=== PATIENT | female | born 1940 | race Caucasian/White ===

== ENCOUNTER 2021-11-17 13:25 | Emergency (ER) | payer MEDICARE ==
[2021-11-17] MEDS ORDERED: SODIUM CHLORIDE 0.9% 500 ML 500 ML IV STA (15:21)
[2021-11-17 15:55] LABS: Basophils % (A) 1 %; Eosinophils # (A) 0.2 k/uL (0-0.7); Eosinophils % (A) 3 %; HCT 40.9 % (34.0-46.0); HGB 13.7 gm/dL (11.4-16.0); Lymphocytes # (A) 1.3 k/uL (1.0-4.8); Lymphocytes % (A) 26 %; MCH 32.7 pg (25.0-35.0); MCHC 33.4 g/dL (31.0-37.0); MCV 97.9 fL (80.0-100.0); Mean Platelet Volume 11.1; Monocytes # (A) 0.2 k/uL (0-1.0); Monocytes % (A) 4 %; Neutrophils # (A) 3.2 k/uL (1.3-7.7); Neutrophils % (A) 63 %; Platelet Count 177 k/uL (150-450); RBC 4.18 m/uL (3.80-5.40); RDW 15.3 % (11.5-15.5); WBC 5.1 k/uL (3.8-10.6)
[2021-11-17 15:58] LABS: Appearance,Urine Clear (Clear); Bilirubin,Urine 2+ (Negative); Blood,Urine Negative (Negative); Color,Urine Dark Yellow; Glucose,Urine (UA) Negative (Negative); Ketones,Urine Negative (Negative); Leukocyte Esterase,Urine Negative (Negative); Nitrite,Urine Negative (Negative); Protein,Urine Negative (Negative); Specific Gravity,Urine 1.009 (1.001-1.035); Urobilinogen,Urine <2.0 mg/dL (<2.0)
[2021-11-17 16:08] LABS: Albumin 3.6 g/dL (3.5-5.0); Bilirubin, Conjugated 11.2 mg/dL (0.0-0.3); Bilirubin, Delta 5.7 mg/dL (0.0-0.2); Bilirubin,Unconjugated 1.4 mg/dL (0.0-1.1); Calcium 9.1 mg/dL (8.4-10.2); Potassium 3.2 mmol/L (3.5-5.1); Total Protein 6.9 g/dL (6.3-8.2)
--- NOTE | 2021-11-17 16:10 | XR ---
EXAMINATION TYPE: XR chest 1V portable DATE OF EXAM: 11/17/2021 COMPARISON: NONE HISTORY: Abdominal pain chest pain TECHNIQUE: Single view FINDINGS: There is no heart failure nor confluent pneumonic infiltrate. There are sternal wires. Ther e is left axillary pacemaker. Costophrenic angles are clear. There is some arthritic changes in the r ight shoulder joint with severe subacromial joint space narrowing. IMPRESSION: No active cardiopulmonary disease.
[2021-11-17 16:14] LABS: Total Bilirubin 18.3 mg/dL (0.2-1.3)
--- NOTE | 2021-11-17 16:15 | XR ---
EXAMINATION TYPE: XR KUB DATE OF EXAM: 11/17/2021 COMPARISON: NONE HISTORY: Abdominal pain TECHNIQUE: 2 views FINDINGS: Two-view supine were obtained and showed no sign of intestinal obstruction or pneumoperiton eum. Fecal pattern is normal. There is vascular calcification. No evidence of a mass. Lung bases are clear. There is mild lumbar levoscoliosis. There is bowel projected over the proximal right femur and consistent with abdominal hernia. IMPRESSION: Nonacute abdomen. Atherosclerotic vascular disease.
[2021-11-17 16:32] LABS: INR 1.1 (<1.2); Partial Thromboplastin Time 28.7 sec (22.0-30.0); Prothrombin Time 11.6 sec (9.0-12.0)
[2021-11-17] MEDS ORDERED: POTASSIUM CHLORIDE ER 20 MEQ TAB.ER PO STA (17:10)
[2021-11-17] MEDS ORDERED: PIPERACILLIN-TAZOBACTAM 3.375 GM in SODIUM CHLORIDE 0.9% 100 ML IVPB SCH (17:15)
--- NOTE | 2021-11-17 17:16 | ED ---
General Adult HPI - General Chief complaint: Recheck/Abnormal Lab/Rx Stated complaint: jaundice, abn labs Time Seen by Provider: 11/17/21 15:10 Source: patient, RN notes reviewed, old records reviewed Mode of arrival: ambulatory Limitations: no limitations - History of Present Illness Initial comments: Patient is an 80-year-old female with past medical history remarkable for heart failure, diabetes, hypertension, thyroid disorder, cholecystectomy multiple years ago and presents emergency Department complaining of worsening weakness as well as worsening skin turning yellow. Patient was seen palpation over the last few weeks by her physician,concern for possible blockage of her hepatobiliary tree. CT obtained on 11/12/[address] [facility] revealed severe diffuse dilation of intrahepatic and extrahepatic biliary ducts as well as the main d istal pancreatic duct. There is small area of nonspecific increased attenuation near the ampulla. MRI or MRCP. Recommended to evaluate for underlying pancreatic head mass for possible choledocholithiasis. Patient states symptoms have been ongoing for multiple weeks. She denies any abdominal pain. Denies any nausea or vomiting. Doesn't endorse lightening of her stools as well as more diarrhea. Denies any fevers, chills. Denies any chest pain or shortness of breath. His no other acute complaints at this time. Is due to follow-up with Dr. House of GI later this week but her weakness has gotten worse which has prompted her to come to the emergency department for further evaluation. Katalina armendarzi does not come with the disc of the images from an outside hospital, but does come with paperwork as well as CT abdomen and pelvis obtained there. - Related Data Allergies Allergy/AdvReac Type Severity Reaction Status Date / Time adhesive tape Allergy Rash/Hives Verified 11/17/21 14:35 cortisone Allergy Nausea & Verified 11/17/21 14:35 Vomiting & Diarrhea hydrochlorothiazide Allergy Unknown Verified 11/17/21 14:35 ibuprofen [From Motrin] Allergy Abdominal Verified 11/17/21 14:35 Pain sulfamethoxazole Allergy Unknown Verified 11/17/21 14:35 [From Bactrim] trimethoprim [From Bactrim] Allergy Unknown Verified 11/17/21 14:35 Review of Systems ROS Statement: Those systems with pertinent positive or pertinent negative responses have been documented in the HPI. Review of Systems: CONST: Denies fever EYES: Denies blurry vision ENT: Denies nasal congestion C/V: Denies Chest pain RESP: Denies shortness of breath GI: Denies abdominal pain : Denies dysuria SKIN: Endorses jaundice MSK: Denies joint pain. NEURO: Denies headache ROS Other: All systems not noted in ROS Statement are negative. Past Medical History Past Medical History: Heart Failure, Diabetes Mellitus, Hyperlipidemia, Hypertension, Osteoarthritis (OA), Rheumatoid Arthritis (RA), Thyroid Disorder Additional Past Medical History / Comment(s): aortic valve stenosis, pulmonary hypertension History of Any Multi-Drug Resistant Organisms: None Reported Past Surgical History: Cholecystectomy, Coronary Bypass/CABG, Heart Catheterization With Stent Additional Past Surgical History / Comment(s): toe amputation, mitral valve replacement, aortic valve replacement Past Psychological History: Anxiety, Depression Smoking Status: Never smoker Past Alcohol Use History: None Reported Past Drug Use History: None Reported General Exam - General Exam Comments Initial Comments: General: Appears in no acute distress. HEAD: Normal with no signs of head trauma. EYES: PERRLA, EOMI. Scleral icterus. ENT: Hearing grossly intact, normal oropharynx. RESPIRATORY: Clear breath sounds bilaterally. No wheezes, rales, or rhonchi. C/V: Regular rate and rhythm. S1 and S2 auscultated, no edema, peripheral pulses 2+ and intact throughout ABD: Abd is soft, nontender, nondistended EXT: Normal range of motion, no obvious deformity SKIN: jaundice. NEURO: Alert and oriented x 4. Cranial nerves II-XII intact. No focal sensory or strength deficits. Limitations: no limitations Course Vital Signs 11/17/21 11/17/21 14:24 20:04 Temperature 97.5 F L 98.6 F Pulse Rate 68 66 Respiratory 16 18 Rate Blood Pressure 135/73 105/63 O2 Sat by Pulse 99 100 Oximetry Medical Decision Making - Medical Decision Making Based on the patient's presentation and physical exam, she presents complaining of worsening jaundice, worsening weakness over the last few weeks. Was being worked up outpatient for possible hepatobiliary obstruction of unknown etiology. Was due to follow up outpatient for an MRCP. She presents today over worsening symptoms. Denies any infectious symptoms. Presents with outpatient laboratory studies and imaging which suggest a hepatobiliary blockage. Patient does not think she can wait until Thursday to be evaluated for an MRCP. We will repeat laboratory studies. I will hold off on repeating imaging at this time as we do have low amounts of IV contrast are in the emergency department in our hospital. We have a CT read with contrast from 4 days ago. Clinically she is not significantly different from 4 days ago other than some mildly increased weakness. She was in agreement this plan. She'll be given a small fluid bolus. Laboratory studies are remarkable for a hypokalemia at 3.2 which is replenished. Patient also has signs of hepatobiliary blockage with a worsening total bilirubin of 18.3, primarily from an elevated conjugated bilirubin of 11.2. AST and ALT are elevated to 980 and 554 respectively. Alk phos is elevated to 1000. I reviewed the results with the patient as well as her daughter over the phone and her . I recommended transfer as we do not have GI services for immediate evaluation by GI for MRCP. There were in agreement with this plan. They did give me a list of preferred destinations. We will reach out to [facility], [facility], and [facility] for possible transfer is. These are unsuccessful we will attempt transfer to [facility]. They were in agreement this plan. Due to the concern for blockage, unknown etiology, I will empirically administer a dose of Zosyn for the patient as she is having clinically worsening weakness but no signs of infection. She was in agreement this plan. As stated previously, CT imaging was not repeated, as we do have low amounts contrast available and we have CT results from 3 or 4 days ago. Unlikely to have significant change at this time as patient clinically is not significant different. CT imaging from outside hospital shows hepatobiliary obstruction from either mass or other source of blockage. They recommend MRI or MRCP. A copy of this read will be sent with the patient and is with our paperwork. After speaking with their top 3 choices of hospitals, she was refused transfer to all of them due to various reasons. She was accepted to [facility] by Dr. Sutton. Patient will be transferred via EMS to [facility]. I updated the patient and family and they were in agreement this plan. She was transferred in stable condition. - Lab Data Result diagrams: 11/17/21 15:42 11/17/21 15:42 Lab Results 11/17/21 11/17/21 11/17/21 Range/Units 15:30 15:42 15:42 WBC 5.1 (3.8-10.6) k/uL RBC 4.18 (3.80-5.40) m/uL Hgb 13.7 (11.4-16.0) gm/dL Hct 40.9 (34.0-46.0) % MCV 97.9 (80.0-100.0) fL MCH 32.7 (25.0-35.0) pg MCHC 33.4 (31.0-37.0) g/dL RDW 15.3 (11.5-15.5) % Plt Count 177 (150-450) k/uL MPV 11.1 Neutrophils % 63 % Lymphocytes % 26 % Monocytes % 4 % Eosinophils % 3 % Basophils % 1 % Neutrophils # 3.2 (1.3-7.7) k/uL Lymphocytes # 1.3 (1.0-4.8) k/uL Monocytes # 0.2 (0-1.0) k/uL Eosinophils # 0.2 (0-0.7) k/uL Basophils # 0.0 (0-0.2) k/uL PT 11.6 (9.0-12.0) sec INR 1.1 (<1.2) APTT 28.7 (22.0-30.0) sec Sodium (137-145) mmol/L Potassium (3.5-5.1) mmol/L Chloride (98-107) mmol/L Carbon Dioxide (22-30) mmol/L Anion Gap mmol/L BUN (7-17) mg/dL Creatinine (0.52-1.04) mg/dL Est GFR (CKD-EPI)AfAm (>60 ml/min/1.73 sqM) Est GFR (CKD-EPI)NonAf (>60 ml/min/1.73 sqM) Glucose (74-99) mg/dL Plasma Lactic Acid Ayaan (0.7-2.0) mmol/L Calcium (8.4-10.2) mg/dL Total Bilirubin (0.2-1.3) mg/dL Conjugated Bilirubin (0.0-0.3) mg/dL Unconjugated Bilirubin (0.0-1.1) mg/dL Delta Bilirubin (0.0-0.2) mg/dL AST (14-36) U/L ALT (4-34) U/L Alkaline Phosphatase (38-126) U/L Total Protein (6.3-8.2) g/dL Albumin (3.5-5.0) g/dL Amylase (30-110) U/L Lipase (23-300) U/L Urine Color Dark Yellow Urine Appearance Clear (Clear) Urine pH 5.0 (5.0-8.0) Ur Specific [place] 1.009 (1.001-1.035) Urine Protein Negative (Negative) Urine Glucose (UA) Negative (Negative) Urine Ketones Negative (Negative) Urine Blood Negative (Negative) Urine Nitrite Negative (Negative) Urine Bilirubin 2+ H (Negative) Urine Urobilinogen <2.0 (<2.0) mg/dL Ur Leukocyte Esterase Negative (Negative) 11/17/21 11/17/21 Range/Units 15:42 17:28 WBC (3.8-10.6) k/uL RBC (3.80-5.40) m/uL Hgb (11.4-16.0) gm/dL Hct (34.0-46.0) % MCV (80.0-100.0) fL MCH (25.0-35.0) pg MCHC (31.0-37.0) g/dL RDW (11.5-15.5) % Plt Count (150-450) k/uL MPV Neutrophils % % Lymphocytes % % Monocytes % % Eosinophils % % Basophils % % Neutrophils # (1.3-7.7) k/uL Lymphocytes # (1.0-4.8) k/uL Monocytes # (0-1.0) k/uL Eosinophils # (0-0.7) k/uL Basophils # (0-0.2) k/uL PT (9.0-12.0) sec INR (<1.2) APTT (22.0-30.0) sec Sodium 138 (137-145) mmol/L Potassium 3.2 L (3.5-5.1) mmol/L Chloride 102 (98-107) mmol/L Carbon Dioxide 23 (22-30) mmol/L Anion Gap 13 mmol/L BUN 44 H (7-17) mg/dL Creatinine 1.00 (0.52-1.04) mg/dL Est GFR (CKD-EPI)AfAm 62 (>60 ml/min/1.73 sqM) Est GFR (CKD-EPI)NonAf 53 (>60 ml/min/1.73 sqM) Glucose 165 H (74-99) mg/dL Plasma Lactic Acid Ayaan 1.0 (0.7-2.0) mmol/L Calcium 9.1 (8.4-10.2) mg/dL Total Bilirubin 18.3 H* (0.2-1.3) mg/dL Conjugated Bilirubin 11.2 H (0.0-0.3) mg/dL Unconjugated Bilirubin 1.4 H (0.0-1.1) mg/dL Delta Bilirubin 5.7 H (0.0-0.2) mg/dL AST 980 H (14-36) U/L ALT 454 H (4-34) U/L Alkaline Phosphatase 1111 H (38-126) U/L Total Protein 6.9 (6.3-8.2) g/dL Albumin 3.6 (3.5-5.0) g/dL Amylase 49 (30-110) U/L Lipase 139 (23-300) U/L Urine Color Urine Appearance (Clear) Urine pH (5.0-8.0) Ur Specific [place] (1.001-1.035) Urine Protein (Negative) Urine Glucose (UA) (Negative) Urine Ketones (Negative) Urine Blood (Negative) Urine Nitrite (Negative) Urine Bilirubin (Negative) Urine Urobilinogen (<2.0) mg/dL Ur Leukocyte Esterase (Negative) Disposition Clinical Impression: Elevated bilirubin, Weakness Narrative: concern for hepatobiliary blockage Disposition: OTHER INSTITUTION NOT DEFINED Condition: Stable Referrals: Derian Stanley DO [Primary Care Provider] - 1-2 days Time of Disposition: 18:00 - Out of Hospital Transfer - Req. Specs Out of Hospital Transfer - Requested Specifics: Other Emergency Center ([facility] for GI services for MRCP. We do not have GI services at this time.)
[2021-11-17 20:06] VITALS: BP 105/63; PULSE 66; RESP 18; TEMP 98.6
== END 2021-11-17 20:06 | disposition other institution (70) ==
LOC: EC 13:25
DX: R19.7 Diarrhea, unspecified (principal); E11.9 Type 2 diabetes mellitus without complications; E78.5 Hyperlipidemia, unspecified; I10 Essential (primary) hypertension; Z91.040 Latex allergy status; Z88.3 Allergy status to other anti-infective agents; Z88.8 Allergy status to other drugs, medicaments and biological substances; Z88.2 Allergy status to sulfonamides
CPT/HCPCS: 36415; 80053; 82150; 82248; 83605; 83690; 85025; 85610; 85730; 81003; 87040; 71045; 74018; 99285; 96365; 96366; 96361; J2543